=== PATIENT | female | born 1955 | race Caucasian/White ===

== ENCOUNTER 2019-01-03 11:08 | Emergency (ER) | payer OTHER ==
[~2019-01-03] VITALS: Ht 154.9 cm; Wt 111.1 kg
[2019-01-03 11:08] VITALS: BP_SYST 158
[2019-01-03] MEDS ORDERED: traMADol HCL HCL 50 MG TABLET (ULTRAM) PO ONE (11:45)
[2019-01-03] MEDS ORDERED: DIPH-TET-PERTUS Vaccine 0.5 ML VIAL (ADACEL) I.M. ONE (11:45)
[2019-01-03 15:40] VITALS: BP_SYST 143
[2019-01-03] MEDS ORDERED: HYDROcodone/ACETAMIN 5-325 MG TAB (NORCO/ VICODIN) PO ONE (15:45)
== END 2019-01-03 15:40 | disposition home or self-care (01) ==
LOC: SED 11:08
DX: S81.011A Laceration without foreign body, right knee, initial encounter (principal); E11.9 Type 2 diabetes mellitus without complications; I10 Essential (primary) hypertension; Z90.49 Acquired absence of other specified parts of digestive tract; W10.9XXA Fall (on) (from) unspecified stairs and steps, initial encounter; Y93.89 Activity, other specified; Y92.89 Other specified places as the place of occurrence of the external cause; Y99.8 Other external cause status
CPT/HCPCS: 73564; 81002; 90715; 99283

== ENCOUNTER 2019-01-16 15:58 | Emergency (ER) | payer OTHER ==
[~2019-01-16] VITALS: Ht 154.9 cm; Wt 109.8 kg
[2019-01-16 16:06] VITALS: BP_SYST 134
--- NOTE | 2019-01-16 16:12 | NUR ---
Patient to ER bed 6 to gown for evaluation. Side rails up. Report given to Paul LITTLE.
--- NOTE | 2019-01-16 16:20 | NUR ---
ER PA Javed at bedside examining patient.
--- NOTE | 2019-01-16 16:25 | NUR ---
Patient came into ED for suture removal of the right knee. The patient had a previous laceration after a mechanical slip and fall that was sutured by another physician. The patient is traveling and would like her sutures removed before she leaves. Patient's sutures appear ready to be removed. No apparent infection. Patient denies pain. A&Ox4
[2019-01-16] MEDS ORDERED: BACITRACIN 1 GM OINT TP ONE (16:30)
--- NOTE | 2019-01-16 16:30 | NUR ---
R knee sutures removed intact. wound well approximated. No s/s/ infection.
[2019-01-16 17:06] VITALS: BP_SYST 134
--- NOTE | 2019-01-16 17:06 | NUR ---
Patient given written and verbal discharge instructions and verbalizes understanding. ER MD discussed with patient the results and treatment provided. Patient in stable condition. ID arm band removed. No Rx of given. Patient educated on pain management and to follow up with PMD. Pain Scale 0 Opportunity for questions provided and answered. Medication side effect fact sheet provided.
== END 2019-01-16 17:06 | disposition home or self-care (01) ==
LOC: SED 15:58
DX: S81.011D Laceration without foreign body, right knee, subsequent encounter (principal); E11.9 Type 2 diabetes mellitus without complications; I10 Essential (primary) hypertension; Z88.0 Allergy status to penicillin; W10.9XXD Fall (on) (from) unspecified stairs and steps, subsequent encounter
CPT/HCPCS: 99282